=== PATIENT | male | born 1940 | race Caucasian/White ===

== ENCOUNTER 2024-03-15 21:17 | Observation (INO) | payer MEDICARE, OTHER, SELFPAY ==
--- NOTE | ~2024-03-15 | CT_ITS ---
EXAMINATION: CT brain wo con DATE: 03/15/2024 22:41 INDICATION: Altered mental status. TECHNIQUE: Computed tomography (CT) of the head was performed without intravenous contrast. The mA wa s adjusted according to patient size. Iterative reconstruction technique was employed. The dose-lengt h product was 681.00 mGy-cm. COMPARISON: None FINDINGS: There are scattered areas of low attenuation in the cerebral white matter. There is no intr acranial hemorrhage, acute infarction, or abnormal intracranial mass lesion. The ventricles are tiny l in size. There are likely changes of ocular lens replacement surgeries. There is mild mucosal thick ening in the paranasal sinuses. The mastoid air cells are normal. IMPRESSION: 1. Moderate nonspecific cerebral white matter disease, which likely represents chronic small vessel i schemic disease. Reviewed, dictated and finalized at location E. IMPRESSION: 1. Moderate nonspecific cerebral white matter disease, which likely represents chronic small vessel ischemic disease.
--- NOTE | ~2024-03-15 | CT_ITS ---
EXAMINATION: CTA brain carotid DATE: 03/16/2024 18:37 INDICATION: Transient ischemic attack. TECHNIQUE: Computed tomographic angiography (CTA) of the head was performed without and with 100 mL O mnipaque-350 intravenous contrast. CTA of the neck was performed with intravenous contrast. Automated exposure control and iterative reconstruction technique were employed. The dose-length product was 1 704.28 mGy-cm. Maximum intensity projection and volume rendered 3D-reconstructions were created by jose manuel e technologist on a separate workstation. COMPARISON: Head CT 03/15/2024, brain MRI 03/16/2024 FINDINGS: HEAD CTA: There are scattered areas of low attenuation in the cerebral white matter. There is no intr acranial hemorrhage, acute infarction, or abnormal intracranial mass lesion. The ventricles are tiny l in size. There is mild mucosal thickening in the paranasal sinuses. There are likely changes of ocu lar lens replacement surgeries. The mastoid air cells are normal. Left vertebral artery is dominant. There is no significant stenosis of basilar artery or the posterior cerebral arteries. There is no si gnificant stenosis of the intracranial internal carotid arteries or anterior or middle cerebral arter ies. Anterior communicating artery is normal. The posterior communicating arteries are normal. There is no aneurysm. NECK CTA: There is a 9 mm nodule in left thyroid lobe, likely not clinically significant. There are n o pathologically enlarged lymph nodes. There is no significant stenosis of the vertebral arteries. Th ere is plaque in the proximal internal carotid arteries. There is 21% stenosis of the proximal right internal carotid artery relative to normal distal artery lumen diameter (NASCET criteria). There is 4 % stenosis of the proximal left internal carotid artery relative to normal distal artery lumen diamet er. There is severe cervical spondylosis. IMPRESSION: 1. Moderate nonspecific cerebral white matter disease, which likely represents chronic small vessel i schemic disease. 2. No aneurysm or significant intracranial arterial stenosis. 3. 21% stenosis of the proximal right internal carotid artery relative to normal distal artery lumen diameter (NASCET criteria). 4. 4% stenosis of the proximal left internal carotid artery relative to normal distal artery lumen di ameter. Reviewed, dictated and finalized at location E. IMPRESSION: 1. Moderate nonspecific cerebral white matter disease, which likely represents chronic small vessel ischemic disease. 2. No aneurysm or significant intracranial arterial stenosis. 3. 21% stenosis of the proximal right internal carotid artery relative to tiny l distal artery lumen diameter (NASCET criteria). 4. 4% stenosis of the proximal left internal carotid artery relative to normal distal artery lumen diameter.
--- NOTE | ~2024-03-15 | MR_ITS ---
MRI of the brain Clinical History: Global amnesia Technique: Axial and sagittal T1-weighted images were acquired. These were followed by axial T2-weigh andrew, diffusion weighted, gradient, and FLAIR images. Following intravenous administration of 13 cc Mu ltiHance gadolinium, T1-weighted fat-sat imaging was performed in the axial and coronal planes. Findings: There is no acute infarct, intracranial hemorrhage or mass lesion. There is moderate chroni c microvascular ischemic change in the periventricular white matter bilaterally. Ventricles and subarachnoid spaces are minimally dilated. Orbits are unremarkable. Paranasal sinuses and mastoid air cells are clear. Major intracranial flow voids appear intact. Sagittal midline structures are intact. No abnormal postcontrast enhancement identified. IMPRESSION: No acute infarct, intracranial hemorrhage, or mass lesion. Moderate chronic microvascular ischemic changes. Reviewed, dictated and finalized at [facility].
--- NOTE | ~2024-03-15 | XR_ITS ---
EXAMINATION: XR chest 2V DATE: 03/15/2024 23:52 INDICATION: Transient ischemic attack. TECHNIQUE: Frontal and lateral views of the chest were obtained. COMPARISON: None. FINDINGS: There is no pneumonia, pleural effusion, or pneumothorax. The heart size is normal. There i s a moderate-sized hiatal hernia. IMPRESSION: 1. Moderate-sized hiatal hernia. Reviewed, dictated and finalized at location E.
--- NOTE | 2024-03-15 21:24 | ECG_ITS ---
Test Date: 2024-03-15 21:28:50 Measurements Intervals [place] Rate: 63 P: 24 [place]: 169 QRS: 36 QRSD: 96 T: 64 QT: 406 QTc: 418 Interpretive Statements SINUS RHYTHM INCOMPLETE RIGHT BUNDLE BRANCH BLOCK BORDERLINE ST ABNORMALITY- ANTEROLAT/INF LEADS BASELINE ARTIFACT- I, II, III, AVR, AVF BORDERLINE ECG No previous ECG available for comparison Electronically Signed On 03-16-2024 06:08:52 CDT by Vishal Rosa D.O.
[2024-03-15 21:29] VITALS: BP 134/71; PULSE 63; RESP 13; TEMP 36.8; O2SAT 96
[2024-03-15 21:45] LABS: Basophils Absolute Auto 0.1 K/mm3 (0.0-0.1); Basophils Percent Auto 1.2 % (0.2-1.2); Eosinophils Absolute Auto 0.2 K/mm3 (0-0.3); Eosinophils Percent Auto 2.6 % (0-4.4); Hematocrit 43.6 % (42.0-52.0); Hemoglobin 14.1 g/dL (14.0-18.0); Immature Granulocyte Absolute 0.02 K/mm3 (0.00-0.031); Immature Granulocyte Percent A 0.3 % (0-0.5); Lymphocytes Absolute Auto 1.83 K/mm3 (0.9-3.2); Lymphocytes Percent Auto 30.1 % (18.3-44.2); Mean Corpuscular HGB Conc 32.3 g/dl (32-36); Mean Corpuscular Hemoglobin 31.2 pg (26-34); Mean Corpuscular Volume 96.5 fl (80-100); Mean Platelet Volume 8.7 fl (7.4-10.4); Monocytes Absolute Auto 0.5 K/mm3 (0.1-0.6); Monocytes Percent Auto 7.9 % (2.6-8.5); Neutrophils Absolute Auto 3.5 K/mm3 (1.3-6.7); Neutrophils Percent Auto 57.9 % (45.5-73.1); Platelet Count Result 216 k/mm3 (150-375); Red Blood Count 4.52 M/mm3 (4.6-6.20); Red Cell Distribution Width 13.2 % (11.5-14.5); White Blood Count 6.1 K/mm3 (4.5-10.0)
[2024-03-15 21:55] LABS: Alanine Aminotransferase 10 U/L (6-50); Albumin Level 4.9 g/dL (3.5-5.1); Alkaline Phosphatase 87 U/L (38-126); Anion Gap 12 mmol/L (4-12); Aspartate Amino Transferase 27 U/L (17-59); Bilirubin,Total 0.8 mg/dL (0.2-1.3); Blood Urea Nitrogen 26 mg/dL (9-20); Calcium 9.6 mg/dL (8.4-10.2); Carbon Dioxide 23 mmol/L (22-30); Chloride 106 mmol/L (98-107); Estimated CRCL calculation 43 ml/min; Estimated Glomerular Filt Rate > 60; Glucose 108 mg/dL (65-110); Potassium 3.7 mmol/L (3.4-5.0); Sodium 141 mmol/L (137-145)
[2024-03-15 21:56] LABS: INR 1.1; Prothrombin Time 14.1 Seconds (11.1-14.7)
[2024-03-15 21:57] LABS: Partial Thromboplastin Time 30.1 Seconds (22.3-36.8)
[2024-03-15 22:36] LABS: Troponin I < 0.012 ng/mL (0.000-0.034)
--- NOTE | 2024-03-15 23:31 | ED.AMS ---
HPI - Altered Mental Status General Chief Complaint: Altered Mental Status Stated Complaint: disoriented intermittently Time Seen by Provider: 03/15/24 21:34 History of Present Illness HPI narrative: Patient is an 83-year-old male who presents ER with concerns for possible TIA. This morning woke up at 2:00 a.m. and he did not know where he was and what house he was in. He has lived and try for the last 4 months. This lasted for 15 minutes. Later in the afternoon he was making an attempt to drive back to [place] because he has reconcile with his . [place] [address] he felt like things were beginning to become Gy in his vision. He then became confused and did not know where he was or what he was doing. He pulled over to a rest stop. He is assessed by a [employer] medic who told him he could be having a TIA. Patient his son opted to come here for further evaluation. Patient has no complaints at this time. He denies any anxiety. Has no weakness or numbness to any arm or leg. No slurred speech. He is orient x4. Related Data Allergies Allergy/AdvReac Type Severity Reaction Status Date / Time No Known Allergies Allergy Verified 03/15/24 21:30 Review of Systems Review of Systems: All systems reviewed & are unremarkable except as noted in HPI and below Constitutional: Constitutional: Reports no additional constitutional complaints ENT: Reports system reviewed and no additional complaints, except as documented Cardiovascular: Cardiovascular: Reports no additional cardiovascular complaints Respiratory: Respiratory: Reports no additional respiratory complaints Gastrointestinal: Gastrointestinal: Reports no additional gastrointestinal complaints Neurologic: Reports confusion, Denies headache(s), Denies focal weakness and Denies numbness PMFSH Past Medical History Medical History (Updated 03/16/24 @ 01:54 by Brandon Tobin MD) History of bladder cancer Surgical History Surgical History (Updated 03/15/24 @ 23:33 by Brandon Tobin MD) H/O cystoscopy Exam Narrative: GENERAL: Well-appearing, well-nourished, and in no acute distress. HEAD: Normocephalic, atraumatic. ENT: Mucous membranes moist. CHEST: Clear to auscultation. No respiratory distress. HEART: Regular rate and rhythm. Normal peripheral pulses. ABDOMEN: Soft, nontender, nondistended. EXTREMITIES: Normal range of motion. No edema. SKIN: Warm, dry, no rash. NEURO: No focal deficits. Alert and oriented x3. no upper or lower extremity drift. Normal [id number]-[id number] testing [id number] testing. Clear speech without expressive aphasia. PSYCH: Normal mood and affect. Course Course Emergency Course: Patient resting comfortably. Informed of results. Admit for observation as patient had been similar TA and it was likely transient global amnesia. Will observe for arrhythmia and obtain MRI. Vital Signs Vital signs: Vital Signs Temperature 98.2 F 03/15/24 21:29 Pulse Rate 63 03/15/24 21:29 Respiratory Rate 13 03/15/24 21:29 Blood Pressure 134/71 03/15/24 21:29 Pulse Oximetry 96 03/15/24 21:29 Temperature 98.2 F 03/15/24 21:29 Pulse Rate 58 L 03/16/24 00:35 Respiratory Rate 16 03/16/24 00:35 Blood Pressure 116/70 03/16/24 00:35 Pulse Oximetry 97 03/16/24 00:35 Oxygen Delivery Room Air 03/15/24 22:33 MDM - Altered Mental Status Lab Data 03/15/24 21:35 03/15/24 21:35 Labs: Lab Results 03/15/24 03/15/24 Range/Units 21:35 23:27 WBC 6.1 (4.5-10.0) K/mm3 RBC 4.52 L (4.6-6.20) M/mm3 Hgb 14.1 (14.0-18.0) g/dL Hct 43.6 (42.0-52.0) % MCV 96.5 (80-100) fl MCH 31.2 (26-34) pg MCHC 32.3 (32-36) g/dl RDW 13.2 (11.5-14.5) % Plt Count 216 (150-375) k/mm3 MPV 8.7 (7.4-10.4) fl Immature Gran % (Auto) 0.3 (0-0.5) % Neut % (Auto) 57.9 (45.5-73.1) % Lymph % (Auto) 30.1 (18.3-44.2) % Mo
[2024-03-15 23:49] LABS: Appearance Urine Clear (Clear); Bilirubin Urine Negative (Negative); Blood Urine Negative (Negative); Color Urine Yellow (Yellow); Glucose Urine UA Negative (Negative); Ketones Urine Negative (Negative); Leukocyte Esterase Ur Negative LEU/UL (Negative); Nitrate Urine Negative (Negative); Protein Urine Negative (Negative); Specific Grav Ur 1.027 (1.001-1.035)
[2024-03-15 23:53] LABS: Add Urine Microscopic? NO
[2024-03-16] VITALS (10 sets, daily range): BP systolic 111–116; BP diastolic 54–70; PULSE 58–68; RESP 16–20; TEMP 36.3–36.8; O2SAT 92–99; BMI 22.4
--- NOTE | 2024-03-16 02:10 | ADMGEN ---
This patient, Noble Ruelas, was admitted to Medical Room 349-01. Patient/family oriented to hospital policies and general routines including ID bracelet, bed and alarms, visiting hours, pain management, procedures, bathroom and other care routines, personal items, smoking policy, room service/diet, and visiting hours. Information on how to activate the Rapid Response Team has been discussed. Patient/Family are encouraged to report perceived risks to care and to ask questions if they do not understand what they are told or what they should do.
--- NOTE | 2024-03-16 05:53 | ECHO_ITS ---
Patient Info Name: Noble Ruelas Age: 83 years : 1940 Gender: Male Ht: 67 in Wt: 145 lbs BSA: 1.77 m2 HR: 59 bpm BP: 114 / 54 mmHg Technical Quality: Fair Exam Date: 03/16/2024 8:13 AM Exam Location: Echo Lab Patient Status: Outpatient Admit Date: 03/16/2024 Staff Ordering Physician: Alan Ogden MD Strawhat Sizer: Kj Brooks RDCS Attending Provider: Alan Ogden MD Exam Type: CA echo doppler w bubble study Study Info Indications I50.20 - Unspecified systolic (congestive) heart failure - CVA Complete two-dimensional, color flow and Doppler transthoracic echocardiogram is performed with agitated saline. Contrast/Agitated Saline Contrast/Ag. Saline: Agitated Saline Amount: 14.00 ml IV Access Condition: patent with no signs of infiltration Summary 1. Left ventricular chamber dimension is normal. 2. Left ventricular systolic function is normal, estimated at 65-70%. 3. The left ventricular diastolic function is grade I diastolic dysfunction. 4. E/e' 8 is minimally elevated. 5. There is moderate aortic valve sclerosis. 6. There is trace aortic valve regurgitation. 7. There is trace mitral valve regurgitation. 8. There is mild tricuspid valve regurgitation. 9. No pulmonary hypertension, estimated pulmonary arterial systolic pressure is 38 mmHg. Left Ventricle E/e' 8 is minimally elevated. Left ventricular chamber dimension is normal. Left ventricular systolic function is normal, estimated at 65-70%. The left ventricular diastolic function is grade I diastolic dysfunction. Right Ventricle Right ventricular systolic function is normal and with normal TAPSE 2.2 cm. Right ventricular chamber dimension is normal. Left Atria Left atrial chamber dimension is normal. Right Atria Right atrial chamber dimension is normal. Atrial Septum Agitated saline injection with and without valsalva maneuver opacified right side cardiac chambers without shunt to left side cardiac chambers. Intact interatrial septum visualized by 2D and agitated saline imaging. Aortic Valve The aortic valve is trileaflet. There is moderate aortic valve sclerosis. There is no aortic valve stenosis. There is trace aortic valve regurgitation. Pulmonic Valve There is no pulmonic regurgitation. Mitral Valve There is no mitral valve stenosis. There is trace mitral valve regurgitation. Tricuspid Valve There is mild tricuspid valve regurgitation. No pulmonary hypertension, estimated pulmonary arterial systolic pressure is 38 mmHg. Pericardium/Pleural There is no pericardial effusion. Inferior Vena Cava Normal inferior vena cava with >50% collapse upon inspiration consistent with normal right atrial pressure, 5 mmHg. Aorta The aortic root size at the sinus of Valsalva is normal. Left Ventricular Outflow Tract Name Value Normal LVOT 2D LVOT Diameter 2.1 cm LVOT Doppler LVOT Peak Gradient 5 mmHg LVOT Mean Gradient 2 mmHg LVOT VTI 22 cm LVOT VTI/AV VTI Ratio 0.6 LVOT Stroke Volume 76 ml LVOT CO
--- NOTE | 2024-03-16 05:55 | PM.IMHP ---
H&P: HPI History of Present Illness Date/Time: 03/16/24 05:55 Chief Complaint: Weakness Narrative: Patient is a 83-year-old male who presented emergency room with history of possible TIA. Patient states he woke up about 2:00 a.m. when he was at home this symptom lasted about 15 minutes. Patient was driving to [place] but after getting on the interstate he started seeing that the patient was getting blurry year he was getting more confused and disoriented slurred speech Review of Systems Review of Systems: All systems reviewed & are unremarkable except as noted in HPI and below PMFSH Past Medical History Medical History (Updated 03/16/24 @ 01:54 by Brandon Tobin MD) History of bladder cancer Surgical History Surgical History (Updated 03/15/24 @ 23:33 by Brandon Tobin MD) H/O cystoscopy Social History Social History Years smoked: 20 Smoking status: Former smoker Alcohol intake: never Substance use: never Do You Feel Safe in your Home?: Yes Lack of Transportation: No Lack of Food: Never True Current Housing: I Have Housing Concerned About Future Housing: No Difficulty Paying Gas/Electric Bills: No Difficulty Paying for Meds: No Currently Unemployed: No Education: High School Diploma/GED Difficulty w/ Childcare or Family Care: No Spiritual care concerns: No Meds Home Medications and Allergies Home Medications Medication Instructions Recorded Confirmed Type oxybutynin chloride 15 mg 15 mg PO DAILY PRN urgency 03/16/24 03/16/24 History tablet,extended release 24 hr valacyclovir 500 mg tablet 500 mg PO DAILY 03/16/24 03/16/24 History (Valtrex) Allergies Allergy/AdvReac Type Severity Reaction Status Date / Time No Known Allergies Allergy Verified 03/16/24 02:50 Vital Signs Vital Signs - 24 hr 03/15/24 21:29 03/15/24 22:33 03/16/24 00:35 Temperature 36.8 C Pulse Rate 63 58 L Respiratory Rate 13 16 Blood Pressure 134/71 116/70 Pulse Oximetry 96 97 Oxygen Delivery Room Air 03/16/24 02:45 03/16/24 04:09 Temperature Pulse Rate 62 62 Respiratory Rate Blood Pressure Pulse Oximetry Oxygen Delivery Exam Narrative: GENERAL: Well appearing, no acute distress. HEAD: Normocephalic, atraumatic. NECK: Supple. No adenopathy, no masses. RESPIRATORY: respirations nonlabored. , no rales, wheezing. CARDIOVASCULAR: Regular rate and rhythm without murmurs, . Peripheral pulses 2+ and equal bilaterally. ABDOMINAL: Soft, nontender, nondistended, no hepatosplenomegaly. Normoactive BS. MUSCULOSKELETAL: no Epigastric and no hypochondrial tenderness SKIN: Warm, dry, NEURO: A&O X3. Moves all extremities H&P: Results Labs Labs: Short CBC 03/15/24 Range/Units 21:35 WBC 6.1 (4.5-10.0) K/mm3 Hgb 14.1 (14.0-18.0) g/dL Hct 43.6 (42.0-52.0) % Plt Count 216 (150-375) k/mm3 BMP 03/15/24 21:35 Sodium 141 Potassium 3.7 Chloride 106 Carbon Dioxide 23 BUN 26 H Creatinine 1.10 Glucose 108 Calcium 9.6 Cardiac Enzymes 03/15/24 Range/Units 21:35 Troponin I < 0.012 (0.000-0.034) ng/mL Liver Function 03/15/24 Range/Units 21:35 Total Bilirubin 0.8 (0.2-1.3) mg/dL AST 27 (17-59) U/L ALT 10 (6-50) U/L Alkaline Phosphatase 87 (38-126) U/L Albumin 4.9 (3.5-5.1) g/dL Urine 03/15/24 Range/Units 23:27 Urine Color Yellow (Yellow) Urine Appearance Clear (Clear) Urine pH 5.0 (5.0-9.0) Ur Specific [place] 1.027 (1.001-1.035) Urine Protein Negative (Negative) mg/dL Urine Glucose (UA) Negative (Negative) mg/dL ECG Interpretation: Moderate nonspecific cerebral white matter disease, which likely represents chronic small vessel ischemic disease. IMPRESSION: 1. Moderate-sized hiatal hernia. Assessment and Plan Assessment and plan (1) TGA (transient global amnesia): Code(s): G45.4 - Transient global a
[2024-03-16 06:08] LABS: Hematocrit 42.1 % (42.0-52.0); Hemoglobin 13.5 g/dL (14.0-18.0); Mean Corpuscular HGB Conc 32.1 g/dl (32-36); Mean Corpuscular Hemoglobin 31.3 pg (26-34); Mean Corpuscular Volume 97.7 fl (80-100); Mean Platelet Volume 8.7 fl (7.4-10.4); Platelet Count Result 186 k/mm3 (150-375); Red Blood Count 4.31 M/mm3 (4.6-6.20); Red Cell Distribution Width 13.2 % (11.5-14.5); White Blood Count 5.5 K/mm3 (4.5-10.0)
[2024-03-16 06:20] LABS: Alanine Aminotransferase 9 U/L (6-50); Albumin Level 4.2 g/dL (3.5-5.1); Alkaline Phosphatase 73 U/L (38-126); Anion Gap 11 mmol/L (4-12); Aspartate Amino Transferase 21 U/L (17-59); Bilirubin,Total 0.8 mg/dL (0.2-1.3); Blood Urea Nitrogen 23 mg/dL (9-20); Calcium 9.6 mg/dL (8.4-10.2); Carbon Dioxide 24 mmol/L (22-30); Chloride 106 mmol/L (98-107); Estimated CRCL calculation 50 ml/min; Estimated Glomerular Filt Rate > 60; Glucose 97 mg/dL (65-110); Potassium 3.6 mmol/L (3.4-5.0); Sodium 141 mmol/L (137-145)
[2024-03-16 06:21] LABS: Cholesterol 166 mg/dL (0-200); HDL Direct 62 mg/dL; Triglycerides 104 mg/dL (<150)
[2024-03-16 06:31] LABS: LDL Cholesterol Direct 81 mg/dL
[2024-03-16 06:34] LABS: Hemoglobin A1C 5.8 % (<5.7)
[2024-03-16] MEDS: valACYclovir HCL 500 MG TABLET PO (09:55)
[2024-03-16] MEDS: PANTOPRAZOLE 40 MG TABLET PO (09:55)
[2024-03-16] MEDS: ENOXAPARIN 40 MG/0.4 ML SYRINGE SUB-Q (09:56)
--- NOTE | 2024-03-16 10:08 | PM.IMPN ---
Progress Note: A&P Assessment and Plan (1) TGA (transient global amnesia): Code(s): G45.4 - Transient global amnesia Status: Acute Plan (1) TGA (transient global amnesia): Code(s): G45.4 - Transient global amnesia Status: Acute CVA/TIA Stroke evaluation/treatment: -Vitals and monitoring: - neurochecks - q4 hours x 24 hours - Continuous cardiac monitoring and telemetr pending MRI brain without contrast, Cancel echocardiogram with color-flow, order echocardiogram with bubble study Consult neurologist for evaluation PT/OT Eval and Treatment Labs: Check LDL and HgbA1C History of urine incontinence continue oxybutynin DVT prophylaxis. Lovenox GI prophylaxis. Protonix Subjective Date/time seen: 03/16/24 10:08 Interval history: I saw examined the patient today in presents of patient's son. Patient was alert oriented when talking to the patient. Patient denies headache, focal weakness, abnormal sensation. Patient afebrile, blood pressure stable Exam Narrative: GENERAL: Pleasant, in no acute distress. Well-nourished. - EYES: EOMI. Anicteric. - HENT: Moist mucous membranes. - LUNGS: Clear to auscultation bilaterally, no wheezing, rhonchi, or rales. - CARDIOVASCULAR: Regular rate and rhythm. No murmur. No JVD. - ABDOMEN: Soft, non-tender and non-distended. No palpable masses. - EXTREMITIES: No edema. Peripheral pulses 2+. Non-tender. - NEUROLOGIC: No focal neurological deficits. CN II-XII grossly intact. - PSYCHIATRIC: Awake, Alert and oriented x 3. Appropriate mood and affect. - SKIN: No rashes or lesions. Warm. - LYMPH: No cervical lymphadenopathy. Objective Data Vital Signs Vital Signs: Vital Signs - 24 hr 03/15/24 21:29 03/15/24 22:33 03/16/24 00:35 Temperature 98.2 F Pulse Rate 63 58 L Respiratory Rate 13 16 Blood Pressure 134/71 116/70 Pulse Oximetry 96 97 Oxygen Delivery Room Air 03/16/24 02:45 03/16/24 04:09 03/16/24 06:00 Temperature 98.1 F Pulse Rate 62 62 59 L Respiratory Rate 20 Blood Pressure 114/54 L Pulse Oximetry 99 Oxygen Delivery 03/16/24 08:00 Temperature Pulse Rate Respiratory Rate Blood Pressure Pulse Oximetry 96 Oxygen Delivery Room Air Intake/Output Intake/Output: Intake & Output 03/13/24 03/14/24 03/15/24 03/16/24 23:59 23:59 23:59 23:59 Intake Total 360 Balance 360 Meds/Results Medications: Active Medications Generic Name Dose Route Start Last Admin Trade Name Shantanuq PRN Reason Stop Dose Admin Acetaminophen 650 mg 03/16/24 00:44 Acetaminophen 325 Mg Tablet PO Q4H PRN Mild Pain (1-3) or Fever Hydrocodone Bitart/Acetaminophen 1 tab 03/16/24 00:44 Hydrocodone/Acetaminophen (*Crx) 5-325 Mg Tablet PO Q4H PRN Pain Rated 4-6 Enoxaparin Sodium 40 mg 03/16/24 09:00 03/16/24 09:56 Enoxaparin 40 Mg/0.4 Ml Syringe SUB-Q 40 mg DAILY RAJESH Administration Ondansetron HCl 4 mg 03/16/24 00:44 Ondansetron Inj 4 Mg/2 Ml Vial IV PUSH Q4H PRN Nausea Oxybutynin Chloride 15 mg 03/16/24 05:55 Oxybutynin Chloride Xl 5 Mg Tab.Er.24 PO DAILY PRN urgency Pantoprazole Sodium 40 mg 03/16/24 09:00 03/16/24 09:55 Pantoprazole 40 Mg Tablet PO 40 mg QAM RAJESH Administration Perflutren Lipid Microsphere 0 ml 03/16/24 05:53 Perflutren Lipid Microspheres 1.5 Ml Vial Diluted To 10 Ml Total Volume IV PUSH 03/19/24 05:53 ONCE PRN adequate visualization Protocol Valacyclovir HCl 500 mg 03/16/24 09:00 03/16/24 09:55 Valacyclovir Hcl 500 Mg Tablet PO 500 mg DAILY RAJESH Administration Radiology Results: ITS Impressions Head CT 03/15/24 22:42 IMPRESSION: 1. Moderate nonspecific cerebral white matter disease, which likely represents chronic small vessel ischemic disease. Chest X-Ray 03/15/24 23:53 IMPRESSION: 1. Moderate-sized hiatal hernia. Labs Labs: Laboratory Results - l
--- NOTE | 2024-03-16 10:47 | WPDNEURCNPN ---
Assessment and Plan Assessment and plan (1) Episode of confusion: Code(s): R41.0 - Disorientation, unspecified Status: Acute Plan Noble Ruelas is a 83 year old male with a history of bladder cancer presenting due to two episodes of confusion. Concern for possible TIA vs TGA vs focal seizure. MRI brain is negative for acute stroke. - Obtain CTA brain/carotid - Obtain routine EEG - Start Aspirin 81mg daily - Start statin. Goal LDL is <70 - Obtain echo with bubble study - I discussed with patient that he cannot drive until he is episode free for at least six months Consult date: 03/16/24 HPI: Noble Ruelas is a 83 year old male with a history of bladder cancer presenting due to an episode of confusion. Patient woke up at 2AM on 03/15 and did not know where he was and what house he was in. He has lived in the house fo the past four months. The episode lasted for about 15 minutes. Later in the afternoon he was driving, and during the drive became confused -- he did not know what he was doing or where he was going. He pulled over at a rest stop. He was assessed by a former medic who told him that he could be having a TIA. Patient was then brought to [facility] ED after that. In the ER he was AOx4. His CT head did not show any acute changes. No vessel imaging was done. MRI brain was negative for stroke. His LDL is 81. He does not take any blood thinners or statins. Review of Systems Review of Systems: All systems reviewed & are unremarkable except as noted in HPI and below PMFSH Past Medical History Medical History History of bladder cancer Surgical History Surgical History H/O cystoscopy Social History Social History Years smoked: 20 Smoking status: Former smoker Alcohol intake: never Substance use: never Do You Feel Safe in your Home?: Yes Lack of Transportation: No Lack of Food: Never True Current Housing: I Have Housing Concerned About Future Housing: No Difficulty Paying Gas/Electric Bills: No Difficulty Paying for Meds: No Currently Unemployed: No Education: High School Diploma/GED Difficulty w/ Childcare or Family Care: No Spiritual care concerns: No Meds Home Medications and Allergies Home Medications Medication Instructions Recorded Confirmed Type oxybutynin chloride 15 mg 15 mg PO DAILY PRN urgency 03/16/24 03/16/24 History tablet,extended release 24 hr valacyclovir 500 mg tablet 500 mg PO DAILY 03/16/24 03/16/24 History (Valtrex) Allergies Allergy/AdvReac Type Severity Reaction Status Date / Time No Known Allergies Allergy Verified 03/16/24 02:50 Vital Signs Vital Signs - 24 hr 03/15/24 21:29 03/15/24 22:33 03/16/24 00:35 Temperature 36.8 C Pulse Rate 63 58 L Respiratory Rate 13 16 Blood Pressure 134/71 116/70 Pulse Oximetry 96 97 Oxygen Delivery Room Air 03/16/24 02:45 03/16/24 04:09 03/16/24 06:00 Temperature 36.7 C Pulse Rate 62 62 59 L Respiratory Rate 20 Blood Pressure 114/54 L Pulse Oximetry 99 Oxygen Delivery 03/16/24 08:00 Temperature Pulse Rate Respiratory Rate Blood Pressure Pulse Oximetry 96 Oxygen Delivery Room Air Exam Const: General: comfortable and no acute distress HENMT: Mouth: Yes moist mucous membranes Eyes: Pupils: Equal, round and reactive pupils present EOM: EOMs intact bilaterally Resp: Effort & Inspection: normal respiratory effort Skin: General skin exam: normal color Neuro: Other: Pupils equal and reactive bilaterally, EOMI, face symmetric, facial sensation intact, tongue protrudes midline, palate midline. Shoulder shrug normal. Strength 5/5 throughout. Sensation is symmetric bilaterally. FNF normal bilaterally. Language comprehension and fluency intact. Gait deferred. Extrem: General: nor
[2024-03-17] VITALS: PULSE 62
[2024-03-17 04:00] VITALS: PULSE 69
[2024-03-17 06:00] VITALS: BP 120/78; PULSE 69; RESP 20; TEMP 37; O2SAT 99
[2024-03-17 06:05] LABS: Hematocrit 42.6 % (42.0-52.0); Hemoglobin 13.7 g/dL (14.0-18.0); Mean Corpuscular HGB Conc 32.2 g/dl (32-36); Mean Corpuscular Hemoglobin 31.5 pg (26-34); Mean Corpuscular Volume 97.9 fl (80-100); Mean Platelet Volume 8.8 fl (7.4-10.4); Platelet Count Result 212 k/mm3 (150-375); Red Blood Count 4.35 M/mm3 (4.6-6.20); Red Cell Distribution Width 13.3 % (11.5-14.5)
[2024-03-17 06:18] LABS: Alanine Aminotransferase 9 U/L (6-50); Albumin Level 4.4 g/dL (3.5-5.1); Alkaline Phosphatase 71 U/L (38-126); Anion Gap 9 mmol/L (4-12); Aspartate Amino Transferase 26 U/L (17-59); Bilirubin,Total 0.9 mg/dL (0.2-1.3); Blood Urea Nitrogen 20 mg/dL (9-20); Calcium 9.9 mg/dL (8.4-10.2); Carbon Dioxide 25 mmol/L (22-30); Chloride 105 mmol/L (98-107); Estimated CRCL calculation 56 ml/min; Estimated Glomerular Filt Rate > 60; Glucose 104 mg/dL (65-110); Potassium 3.9 mmol/L (3.4-5.0); Sodium 139 mmol/L (137-145)
[2024-03-17 08:00] VITALS: PULSE 65
[2024-03-17] MEDS: ATORVASTATIN 10 MG TABLET PO (08:52)
[2024-03-17] MEDS: PANTOPRAZOLE 40 MG TABLET PO (08:52)
[2024-03-17] MEDS: ASPIRIN 81 MG CHEWABLE TABLET PO (08:52)
[2024-03-17] MEDS: ENOXAPARIN 40 MG/0.4 ML SYRINGE SUB-Q (08:52)
[2024-03-17] MEDS: valACYclovir HCL 500 MG TABLET PO (08:52)
--- NOTE | 2024-03-17 09:06 | WPDNEUROPN ---
Progress Note: A&P Assessment and Plan (1) Episode of confusion: Code(s): R41.0 - Disorientation, unspecified Status: Acute Plan Noble Ruelas is a 83 year old male with a history of bladder cancer presenting due to two episodes of confusion. Concern for possible TIA vs TGA vs focal seizure. MRI brain is negative for acute stroke. Routine EEG is normal. - Start Aspirin 81mg daily - Start statin. Goal LDL is <70 - Echo is negative for shunt. Would also like 30 day event monitor placed prior to discharge. - I discussed with patient that he cannot drive until he is episode free for at least six months Subjective Date/time seen: 03/17/24 09:06 Interval history: Noble Ruelas is a 83 year old male with a history of bladder cancer presenting due to an episode of confusion. Patient woke up at 2AM on 03/15 and did not know where he was and what house he was in. He has lived in the house fo the past four months. The episode lasted for about 15 minutes. Later in the afternoon he was driving, and during the drive became confused -- he did not know what he was doing or where he was going. He pulled over at a rest stop. He was assessed by a former medic who told him that he could be having a TIA. Patient was then brought to [place] ED after that. In the ER he was AOx4. His CT head did not show any acute changes. CTA brain/carotid showed 21% stenosis in the proximal R ICA and 4% stenosis in the proximal L ICA. MRI brain was negative for stroke. His LDL is 81. He does not take any blood thinners or statins. Echo was done which was negative for shunt on bubble study. Routine EEG from this morning was normal. Review of Systems Review of Systems: All systems reviewed & are unremarkable except as noted in HPI and below Exam Const: General: comfortable and no acute distress HENMT: Mouth: Yes moist mucous membranes Eyes: Pupils: Equal, round and reactive pupils present EOM: EOMs intact bilaterally Resp: Effort & Inspection: normal respiratory effort Skin: General skin exam: normal color Neuro: Other: Pupils equal and reactive bilaterally, EOMI, face symmetric, facial sensation intact, tongue protrudes midline, palate midline. Shoulder shrug normal. Strength 5/5 throughout. Sensation is symmetric bilaterally. FNF normal bilaterally. Language comprehension and fluency intact. Gait deferred. Extrem: General: normal to inspection Psych: Mental Status: mental status grossly normal Affect: normal affect Objective Data Vital Signs Vital Signs: Vital Signs - 24 hr 03/16/24 14:00 03/16/24 16:00 03/16/24 20:04 Temperature 36.3 C L 36.8 C Pulse Rate 67 58 L 61 Respiratory Rate 16 16 Blood Pressure 111/68 116/65 Pulse Oximetry 97 92 Oxygen Delivery 03/16/24 20:00 03/16/24 20:00 03/16/24 21:48 Temperature Pulse Rate 68 Respiratory Rate Blood Pressure Pulse Oximetry 93 Oxygen Delivery Room Air Room Air 03/17/24 00:00 03/17/24 04:00 03/17/24 06:00 Temperature 37.0 C Pulse Rate 62 69 69 Respiratory Rate 20 Blood Pressure 120/78 Pulse Oximetry 99 Oxygen Delivery Intake/Output Intake/Output: Intake & Output 03/14/24 03/15/24 03/16/24 03/17/24 23:59 23:59 23:59 23:59 Intake Total 1190 240 Balance 1190 240 Meds/Results Medications: Active Medications Generic Name Dose Route Start Last Admin Trade Name Freq PRN Reason Stop Dose Admin Acetaminophen 650 mg 03/16/24 00:44 Acetaminophen 325 Mg Tablet PO Q4H PRN Mild Pain (1-3) or Fever Hydrocodone Bitart/Acetaminophen 1 tab 03/16/24 00:44 Hydrocodone/Acetaminophen (*Crx) 5-325 Mg Tablet PO Q4H PRN Pain Rated 4-6 Aspirin 81 mg 03/17/24 08:00 03/17/24 08:52 Aspirin 81 Mg Chewable Tablet PO 81 mg DAILY@0800 [facility] Administration Atorvastatin Calcium 10 mg 03/17/24 09:00 03/17/24 08:52 Atorvastatin 10 Mg Tablet PO 10 mg DAILY [facility] Administrat
--- NOTE | 2024-03-17 10:43 | WPDNEUROLOGY ---
Neurology EEG Report General Information Date of Study: 03/17/24 TEST Routine EEG DIAGNOSIS Episodes of confusion CONDITION OF RECORDING Awake, drowsy, asleep EEG NUMBER [id number] CLINICAL HISTORY Patient had two episodes of confusion. With the first episode he woke up in the government relations [place] and did not know where he was. With the second episode he was driving and then suddenly did not know where he was going and why he was driving. EEG DESCRIPTION During the awake state with eyes closed the background consists of 9 Hz posterior dominant rhythm which attenuates appropriately with eye opening. The recording is continuous. There is a well developed anterior-posterior gradient. No significant asymmetries of background activities are noted. With drowsiness there is waxing and waning of the dominant rhythm with eventual replacement by a mixture of beta, alpha, and theta activity. As the patient enters stage II sleep, symmetrical spindles are present. There are no epileptiform discharges or seizures during this recording. Hyperventilation and photic stimulation were not performed. IMPRESSION This is a normal routine EEG recorded in awake and asleep states. There are no electrographic seizures identified, nor are there any epileptiform discharges. Please note that a normal EEG cannot exclude a seizure disorder. Clinical correlation is recommended.
--- NOTE | 2024-03-17 10:47 | PM.DS ---
DS: Admitting Diagnosis Discharge Date 03/17/24 Admitting Diagnosis Confusion DS: Discharge Diagnosis Discharge Diagnosis (1) TGA (transient global amnesia): Code(s): G45.4 - Transient global amnesia Status: Acute DS: Summary Hospital Course Hospital Course: 83-year-old male with history of bladder cancer presented with confusion episodes along with slurred speech and blurry vision. Each episode lasts about 15 minutes.. Evaluated for TIA versus stroke. And CT showed moderate nonspecific cerebral white matter disease which likely represent chronic small vessel ischemic disease. EKG was sinus rhythm. Chest x-ray with moderate-sized hiatal hernia. Patient was admitted for further treatment with neurology consultation. Echocardiogram showed EF 65-70% grade 1 diastolic dysfunction moderate aortic sclerosis. Neurology recommends 30 day event monitor placed prior to discharge. Started on aspirin 81 and statin for goal LDL of less than 70. No driving until episode free for at least 6 months. MRI brain was negative for acute stroke. Eeg was performed during the hospital stay. CTA head and neck with 21% proximal ADRIÁN and 4% LICA. He will follow-up with neurology as an outpatient basis. A1c at 5.8 labs were unremarkable urine was negative for infection. Will set him up with event monitor prior to discharge Time Spent with Patient Time attestation: Total time spent providing and/or coordinating discharge services: 35 minutes Exam Narrative: GENERAL: Pleasant, in no acute distress. Well-nourished. - EYES: EOMI. Anicteric. - HENT: Moist mucous membranes. - LUNGS: Clear to auscultation bilaterally, no wheezing, rhonchi, or rales. - CARDIOVASCULAR: Regular rate and rhythm. No murmur. No JVD. - ABDOMEN: Soft, non-tender and non-distended. No palpable masses. - EXTREMITIES: No edema. Peripheral pulses 2+. Non-tender. - NEUROLOGIC: No focal neurological deficits. CN II-XII grossly intact. - PSYCHIATRIC: Awake, Alert and oriented x 3. Appropriate mood and affect. - SKIN: No rashes or lesions. Warm. - LYMPH: No cervical lymphadenopathy. DS: Data Data Completed and Pending Labs on day of discharge: Labs from last 24 hours 03/17/24 05:56 WBC 6.0 RBC 4.35 L Hgb 13.7 L Hct 42.6 MCV 97.9 MCH 31.5 MCHC 32.2 RDW 13.3 Plt Count 212 MPV 8.8 Sodium 139 Potassium 3.9 Chloride 105 Carbon Dioxide 25 Anion Gap 9 BUN 20 Creatinine 0.80 Estim Creat Clear Calc 56 Estimated GFR > 60 Glucose 104 Calcium 9.9 Total Bilirubin 0.9 AST 26 ALT 9 Alkaline Phosphatase 71 Total Protein 7.0 Albumin 4.4 Imaging Radiologist's impression: ITS Impressions Head CT 03/15/24 22:42 IMPRESSION: 1. Moderate nonspecific cerebral white matter disease, which likely represents chronic small vessel ischemic disease. Chest X-Ray 03/15/24 23:53 IMPRESSION: 1. Moderate-sized hiatal hernia. Brain MRI 03/16/24 12:27 IMPRESSION: No acute infarct, intracranial hemorrhage, or mass lesion. Moderate chronic microvascular ischemic changes. Head/Neck CTA 03/16/24 18:58 IMPRESSION: 1. Moderate nonspecific cerebral white matter disease, which likely represents chronic small vessel ischemic disease. 2. No aneurysm or significant intracranial arterial stenosis. 3. 21% stenosis of the proximal right internal carotid artery relative to normal distal artery lumen diameter (NASCET criteria). 4. 4% stenosis of the proximal left internal carotid artery relative to normal distal artery lumen diameter. Discharge Plan Discharge Attending physician on discharge: Paul Bagley Consulting providers: Noble Franco; Lisa Pack Christy A. Discharging Clinician: Paul Bagley Anticipated Discharge Date/Time: 03/17/24 10:51 Patient Disposition: Home, Self-Care Activity: no driving and as tolerated Diet: heart healthy Patient Instructions: Antibiot
== END 2024-03-17 12:15 | disposition home or self-care (01) ==
LOC: ANHED 21:49 → ANH3MED 03-16 01:54
PROVIDERS: Admitting Provider Internal Medicine; Emergency Provider Emergency Medicine; Visit Provider Internal Medicine
DX: G45.4 Transient global amnesia (principal); Z85.51 Personal history of malignant neoplasm of bladder; Z87.891 Personal history of nicotine dependence; R32 Unspecified urinary incontinence; K44.9 Diaphragmatic hernia without obstruction or gangrene; I08.2 Rheumatic disorders of both aortic and tricuspid valves
CPT/HCPCS: 36415; 70450; 70496; 70498; 70553; 71046; 80053; 80061; 81003; 83036; 84484; 85025; 85027; 85610; 85730; 93005; 93306; 95816; 96375; 99285; A9270; A9577; G0378; J1650; Q9967

== ENCOUNTER 2025-02-11 15:15 | Emergency (ER) | payer MEDICARE, OTHER, SELFPAY ==
[2025-02-11 15:16] VITALS: BP 120/80; PULSE 68; RESP 18; TEMP 36.6; O2SAT 97
--- OUTSIDE RECORDS SUMMARY | 2025-02-11 16:04 | XMS_ITS | Continuity of Care Document ---
Author Organization [facility] Address [address] [place] [address] Phone Care Team Providers Care Supervisor Dog License Officer Name Role Phone No Information Unavailable Unavailable Advance Directives Directive Yes / No Effective Date File Name No Information Encounters Encounter Description Practice Location Reason(s) For Visit Diagnoses Date Provider Providers Copied on Encounter [facility], [address], [place], [id number], [place] tel:[phone] No Location No Information 8 No Information Family History Family Member Type Diagnosis Age At Onset No Information Payers Payer name Insurance type Covered green party ID Authoriza tion(s) No Information Social History Type Description Quantity Date Captured Comments Sex Male Smoking Status No Information Chief Complaint And Reason For Visit No Information Reason For Referral Reason For Referral No Information History Of Present Illness Encounter Date Complaint History Of Prese nt Illness No Information Functional Status Date Functional Assessmen t No Information Instructions Date Instruction Additional Infor mation No Information Assessments Type Assessment Date No Information Patient Care Teams Name Effective Dates (start - stop) Status Members No Information
--- NOTE | 2025-02-11 16:21 | ED.PSYCH ---
HPI - Psych General Chief Complaint: Psychiatric Symptoms Stated Complaint: si Time Seen by Provider: 02/11/25 15:52 History of Present Illness HPI Narrative: 84-year-old male with history of Alzheimer's dementia, depression and anxiety presents to the ED with son at bedside via EMS from [facility] for SI. Patient's son/ALEK lemus is at bedside to assist with history. The patient states that a few days ago the patient son received a letter in the mail from a [employer] from [place] stating that the patient had unpaid bills. The patient states that he spoke with the [employer] who confirmed the letter was not from them and that the patient was up-to-date on his bills. Patient states that he believes that his son does not believe him. They were discussing this on the phone today and got into an argument and the patient reportedly said ?I can just take care of this myself? and states he was alluding to killing himself, however he didn't mean it. Patient's son states it concerned him, so he contacted the litigation legal secretary at the assisted living facility who contacted EMS the patient was transported to the ED. on arrival the patient denies SI or HI, he denies any point for SI or HI. He denies access to weapons or firearms. States he drinks a couple beers a week. Denies drug use. Denies prior history of psychiatric hospitalizations. The patient recently moved locally to be closer to family and wishes that he could move back to [place] because he liked his life there, or go live on a campground. Patient is forgetful, however son states this is his baseline. Related Data Home Medications ?Medication ?Instructions ?Recorded ?Confirmed ?Last Taken ?Type valacyclovir 500 mg tablet 500 mg PO DAILY 03/16/24 07/25/24 03/15/24 09:00 History (Valtrex) Allergies Allergy/AdvReac Type Severity Reaction Status Date / Time No Known Allergies Allergy Verified 01/02/25 15:26 Review of Systems Review of Systems: All systems reviewed & are unremarkable except as noted in HPI and below PMFSH Past Medical History Medical History Dementia of the Alzheimer's type Partial seizure with complex symptomatology History of bladder cancer Surgical History Surgical History H/O cystoscopy Social History Social History Years smoked: 20 Smoking status: Former smoker Alcohol intake: never Substance use: never Substance use type: does not use Do You Feel Safe in your Home?: Yes Lack of Transportation: No Lack of Food: Never True Current Housing: I Have Housing Concerned About Future Housing: No Difficulty Paying Gas/Electric Bills: No Difficulty Paying for Meds: No Currently Unemployed: No Education: High School Diploma/GED Difficulty w/ Childcare or Family Care: No Spiritual care concerns: No Exam Narrative: GENERAL: Well-appearing, well-nourished, and in no acute distress. HEAD: Normocephalic, atraumatic. EYES: EOMI. ENT: Nares clear, no rhinorrhea or epistaxis. Mucous membranes moist. NECK: Supple. CHEST: Clear to auscultation. No respiratory distress. HEART: Regular rate and rhythm. No murmur heard. Normal peripheral pulses. EXTREMITIES: Normal range of motion. No edema. SKIN: Warm, dry, no rash. NEURO: No focal deficits. Alert and oriented x4. PSYCH: Answering all questions appropriately. Forgetful has to be redirected/reminded of questions. Denies SI or HI. Responding to internal stimuli. Pleasant and cooperative. Course Vital Signs Vital signs: Vital Signs Temperature 97.9 F 02/11/25 15:16 Pulse Rate 68 02/11/25 15:16 Respiratory Rate 18 02/11/25 15:16 Blood Pressure 120/80 02/11/25 15:16 Pulse Oximetry 97 02/11/25 15:16 Oxygen Delivery Room Air 02/11/25 15:16 Temperature 97.9 F 02/11/25 15:16 Pulse Rate 68 02/11/25 15:16 Respiratory Rate 18 02/11/25 15:16 Blood Pressure 120/80 02/11/25 15:16 Pulse Oximetry 97 02/11/25 15:16 Oxygen Delivery Room Air 02/11/25 15:16 MDM - Psych MDM Narrative Medical decision making narrative: 84-year-old male with history of dementia, depression and anxiety presents to the ED via EMS from assisted living facility for suicidal ideation. Patient was in an argument with his son and admits to making a comment stating I will just take care of it myself, eluting to killing himself. See HPI for further history. Triage vitals are stable. On arrival to the ED the patient denies any SI or HI, he denies any plan. He states he does not desire to ever harm himself. Lab work with chronic anemia, otherwise reassuring with no UTI, normal TSH, normal chemistries. Viral swabs negative. UDS and ETOH negative. Patient medically cleared for crisis evaluation. Patient evaluated by crisis. Safety plan has been filled out. Patient continues to deny any thoughts of harming himself or any plan to. He states he simply was making a common out of frustration in an argument with his son. Patient will be discharged back to assisted living facility and advised to follow-up with his PCP and neurologist. He was given return precautions. He and his son are agreeable with the plan verbalized understanding. Discharged in stable condition. Lab Data 02/11/25 17:27 02/11/25 16:46 Labs: Lab Results 02/11/25 02/11/25 Range/Units 16:46 17:27 WBC 5.5 (4.5-10.0) K/mm3 RBC 4.52 L (4.6-6.20) M/mm3 Hgb 13.6 L (14.0-18.0) g/dL Hct 43.6 (42.0-52.0) % MCV 96.5 (80-100) fl MCH 30.1 (26-34) pg MCHC 31.2 L (32-36) g/dl RDW 12.7 (11.5-14.5) % Plt Count 224 (150-375) k/mm3 MPV 8.5 (7.4-10.4) fl Immature Gran % (Auto) 0.2 (0-0.5) % Neut % (Auto) 61.4 (45.5-73.1) % Lymph % (Auto) 21.7 (18.3-44.2) % [place] % (Auto) 8.0 (2.6-8.5) % Eos % (Auto) 6.9 H (0-4.4) % Baso % (Auto) 1.8 H (0.2-1.2) % Lymph # (Auto) 1.20 (0.9-3.2) K/mm3 [place] # (Auto) 0.4 (0.1-0.6) K/mm3 Eos # (Auto) 0.4 H (0-0.3) K/mm3 Baso # (Auto) 0.1 (0.0-0.1) K/mm3 Abs Immat Gran (auto) 0.01 (0.00-0.031) K/mm3 Absolute Neuts (auto) 3.4 (1.3-6.7) K/mm3 Absolute Nucleated RBC 0.000 (0.0-0.012) K/mm3 Nucleated RBC % 0.0 (0.0-0.2) % Sodium 138 (137-145) mmol/L Potassium 4.3 (3.4-5.0) mmol/L Chloride 101 (98-107) mmol/L Carbon Dioxide 26 (22-30) mmol/L Anion Gap 11 (4-12) mmol/L BUN 19 (9-20) mg/dL Creatinine 0.91 (0.7-1.3) mg/dL Estim Creat Clear Calc 49 ml/min Estimated GFR > 60 (59 - ) Glucose 110 (65-110) mg/dL Calcium 9.9 (8.4-10.2) mg/dL Total Bilirubin 0.7 (0.2-1.3) mg/dL AST 30 (17-59) U/L ALT 9 (6-50) U/L Alkaline Phosphatase 111 (38-126) U/L Total Protein 8.0 (6.3-8.2) g/dL Albumin 4.6 (3.5-5.1) g/dL TSH 0.764 (0.465-4.680) uIU/mL Urine Color Yellow (Yellow) Urine Appearance Clear (Clear) Urine pH 5.5 (5.0-9.0) Ur Specific [place] 1.014 (1.001-1.035) Urine Protein Negative (Negative) mg/dL Urine Glucose (UA) Negative (Negative) mg/dL Urine Ketones Negative (Negative) mg/dL Ur Blood (Man) Negative (Negative) Urine Nitrate Negative (Negative) Urine Bilirubin Negative (Negative) Urine Urobilinogen 0.2 (<2.0) mg/dL Leukocyte Esterase Rfl Negative (Negative) FABY/UL Salicylates < 1.0 L (2-20) mg/dL Urine Opiates Screen Negative (Negative) Urine Methadone Screen Negative (Negative) Acetaminophen < 10 L (10-30) ug/mL Ur Barbiturates Screen Negative (Negative) Ur Phencyclidine Scrn Negative (Negative) Ur Amphetamine Screen Negative (Negative) U Benzodiazepines Scrn Negative (Negative) Urine Cocaine Screen Negative (Negative) U Cannabinoids Screen Negative (Negative) Ethyl Alcohol < 10 (<10) mg/dL Influenza A (RT-PCR) Negative (Negative) Influenza B (RT-PCR) Negative (Negative) RSV (RT-PCR) Negative (Negative) SARS-CoV-2 RNA (RT-PCR) Negative (Negative) Discharge Plan Discharge Clinical Impression: Alzheimer's dementia Qualifiers: Alzheimer's disease onset: unspecified onset Dementia severity: unspecified severity Dementia behavioral or psychological symptom: unspecified whether behavioral, psychotic, or mood disturbance or anxiety Qualified Code(s): G30.9 - Alzheimer's disease, unspecified [facility] Condition: Stable Instructions: Antibiotic Form, Help Prevent Suicide in Older Adults (ED) Additional Instructions: Please follow-up with your primary care provider and neurologist. Return to the emergency department if you develop any thoughts of harming herself or other people, or other concerning symptoms. Patient Language: French Prescriptions: No Action levetiracetam [Keppra XR] 500 mg tablet extended release 24 hr 1,000 mg PO DAILY Qty: 180 2RF Rx Instructions: at bedtime donepezil [Aricept] 5 mg tablet 5 mg PO DAILY Qty: 90 1RF Rx Instructions: should be taken in the morning atorvastatin 40 mg tablet See Rx Instructions .ROUTE .COMPLEX Qty: 90 3RF Dose Instruction: TAKE 1 TABLET BY MOUTH EVERY DAY AT BEDTIME Rx Instructions: TAKE 1 TABLET BY MOUTH EVERY DAY AT BEDTIME valacyclovir [Valtrex] 500 mg Tablet 500 mg PO DAILY Follow-up/Referrals: PHYSICIAN,BRUSH MATERIAL PREPARER [Primary Care Provider] -
[2025-02-11 16:55] LABS: Add Urine Microscopic? NO; Appearance Urine Clear (Clear); Bilirubin Urine Negative (Negative); Blood Urine Negative (Negative); Color Urine Yellow (Yellow); Glucose Urine UA Negative (Negative); Ketones Urine Negative (Negative); Leukocyte Esterase Ur Negative LEU/UL (Negative); Nitrate Urine Negative (Negative); Protein Urine Negative (Negative); Specific Grav Ur 1.014 (1.001-1.035); Urobilinogen Urine 0.2 mg/dL (<2.0); pH Urine 5.5 (5.0-9.0)
[2025-02-11 17:03] LABS: Acetaminophen < 10 ug/mL (10-30); Alanine Aminotransferase 9 U/L (6-50); Albumin Level 4.6 g/dL (3.5-5.1); Alkaline Phosphatase 111 U/L (38-126); Anion Gap 11 mmol/L (4-12); Aspartate Amino Transferase 30 U/L (17-59); Bilirubin,Total 0.7 mg/dL (0.2-1.3); Blood Urea Nitrogen 19 mg/dL (9-20); Calcium 9.9 mg/dL (8.4-10.2); Carbon Dioxide 26 mmol/L (22-30); Chloride 101 mmol/L (98-107); Estimated CRCL calculation 49 ml/min; Estimated Glomerular Filt Rate > 60; Ethanol < 10 mg/dL (<10); Glucose 110 mg/dL (65-110); Potassium 4.3 mmol/L (3.4-5.0); Salicylate < 1.0 mg/dL (2-20); Sodium 138 mmol/L (137-145)
[2025-02-11 17:13] LABS: Amphetamine Screen Urine Negative (Negative); Barbiturate Screen Urine Negative (Negative); Benzodiazepines Screen Urine Negative (Negative); Cannabinoid Screen Urine Negative (Negative); Cocaine Screen Urine Negative (Negative); Methadone Screen Urine Negative (Negative); Opiate Screen Urine Negative (Negative); Phencyclidine Screen Urine Negative (Negative)
[2025-02-11 17:30] LABS: Influenza A QL RT-PCR Negative (Negative); Influenza B QL RT-PCR Negative (Negative); RSV RNA, RT-PCR Negative (Negative); SARS-CoV-2 RNA PCR Negative (Negative)
[2025-02-11 17:32] LABS: Basophils Absolute Auto 0.1 K/mm3 (0.0-0.1); Basophils Percent Auto 1.8 % (0.2-1.2); Eosinophils Absolute Auto 0.4 K/mm3 (0-0.3); Eosinophils Percent Auto 6.9 % (0-4.4); Hematocrit 43.6 % (42.0-52.0); Hemoglobin 13.6 g/dL (14.0-18.0); Immature Granulocyte Absolute 0.01 K/mm3 (0.00-0.031); Immature Granulocyte Percent A 0.2 % (0-0.5); Lymphocytes Percent Auto 21.7 % (18.3-44.2); Mean Corpuscular HGB Conc 31.2 g/dl (32-36); Mean Corpuscular Hemoglobin 30.1 pg (26-34); Mean Corpuscular Volume 96.5 fl (80-100); Mean Platelet Volume 8.5 fl (7.4-10.4); Monocytes Absolute Auto 0.4 K/mm3 (0.1-0.6); Neutrophils Absolute Auto 3.4 K/mm3 (1.3-6.7); Neutrophils Percent Auto 61.4 % (45.5-73.1); Platelet Count Result 224 k/mm3 (150-375); Red Blood Count 4.52 M/mm3 (4.6-6.20); Red Cell Distribution Width 12.7 % (11.5-14.5); White Blood Count 5.5 K/mm3 (4.5-10.0)
[2025-02-11 17:41] LABS: Thyroid Stimulating Hormone 0.764 uIU/mL (0.465-4.680)
--- NOTE | 2025-02-11 19:01 | PC.NURSE ---
Crisis at bedside
== END 2025-02-11 20:31 ==
PROVIDERS: Emergency Provider Physician Assistant
DX: G30.9 Alzheimer's disease, unspecified (principal); F02.80 Dementia in other diseases classified elsewhere, unspecified severity, without behavioral disturbance, psychotic disturbance, mood disturbance, and anxiety; F41.8 Other specified anxiety disorders; Z85.51 Personal history of malignant neoplasm of bladder; Z87.891 Personal history of nicotine dependence; Z11.59 Encounter for screening for other viral diseases
CPT/HCPCS: 36415; 80053; 80143; 80179; 80307; 81003; 82077; 84443; 85025; 87637; 99284

== ENCOUNTER 2025-02-19 13:00 | Outpatient (CLI) | payer MEDICARE, OTHER, SELFPAY ==
--- NOTE | 2025-02-19 13:49 | ECG_ITS ---
Test Date: 2025-02-19 13:58:14 Measurements Intervals [place] Rate: 51 P: -7 CA: 141 QRS: 46 QRSD: 98 T: 65 QT: 443 QTc: 410 Interpretive Statements SINUS BRADYCARDIA BORDERLINE ST ABNORMALITY- DIFFUSE LEADS BASELINE ARTIFACT- I, II, III, AVR, AVL ,AVF BORDERLINE ECG Compared to ECG 03/15/2024 21:28:50 HEART RATE HAS DECREASED Electronically Signed On 02-19-2025 16:02:18 CDT by Vishal Rosa D.O.
[2025-02-19 14:04] LABS: Basophils Absolute Auto 0.1 K/mm3 (0.0-0.1); Basophils Percent Auto 1.5 % (0.2-1.2); Eosinophils Absolute Auto 0.4 K/mm3 (0-0.3); Eosinophils Percent Auto 7.1 % (0-4.4); Hematocrit 41.3 % (42.0-52.0); Hemoglobin 12.9 g/dL (14.0-18.0); Immature Granulocyte Absolute 0.02 K/mm3 (0.00-0.031); Immature Granulocyte Percent A 0.3 % (0-0.5); Lymphocytes Absolute Auto 1.21 K/mm3 (0.9-3.2); Lymphocytes Percent Auto 19.6 % (18.3-44.2); Mean Corpuscular HGB Conc 31.2 g/dl (32-36); Mean Corpuscular Hemoglobin 30.1 pg (26-34); Mean Corpuscular Volume 96.3 fl (80-100); Mean Platelet Volume 8.6 fl (7.4-10.4); Monocytes Absolute Auto 0.5 K/mm3 (0.1-0.6); Monocytes Percent Auto 7.9 % (2.6-8.5); Neutrophils Absolute Auto 3.9 K/mm3 (1.3-6.7); Neutrophils Percent Auto 63.6 % (45.5-73.1); Platelet Count Result 225 k/mm3 (150-375); Red Blood Count 4.29 M/mm3 (4.6-6.20); Red Cell Distribution Width 12.7 % (11.5-14.5); White Blood Count 6.2 K/mm3 (4.5-10.0)
[2025-02-19 14:11] LABS: Hemoglobin A1C 5.7 % (<5.7)
--- OUTSIDE RECORDS SUMMARY | 2025-02-19 14:12 | XMS_ITS | Continuity of Care Document ---
Author Organization [facility] Address [address] [place] [address] Phone Care Team Providers Care Author'S Agent Name Role Phone No Information Unavailable Unavailable Advance Directives Directive Yes / No Effective Date File Name No Information Encounters Encounter Description Practice Location Reason(s) For Visit Diagnoses Date Provider Providers Copied on Encounter [facility], [address], [place], [id number], [place] tel:[phone] No Location No Information 8 No Information Family History Family Member Type Diagnosis Age At Onset No Information Payers Payer name Insurance type Covered alliance party ID Authoriza tion(s) No Information Social [...]
[2025-02-19 14:13] LABS: Alanine Aminotransferase 9 U/L (6-50); Albumin Level 4.3 g/dL (3.5-5.1); Alkaline Phosphatase 95 U/L (38-126); Anion Gap 8 mmol/L (4-12); Aspartate Amino Transferase 26 U/L (17-59); Bilirubin,Total 0.5 mg/dL (0.2-1.3); Blood Urea Nitrogen 20 mg/dL (9-20); Calcium 9.5 mg/dL (8.4-10.2); Carbon Dioxide 25 mmol/L (22-30); Chloride 104 mmol/L (98-107); Cholesterol 115 mg/dL (0-200); Estimated Glomerular Filt Rate > 60; Glucose 103 mg/dL (65-110); HDL Direct 57 mg/dL; Potassium 4.6 mmol/L (3.4-5.0); Sodium 137 mmol/L (137-145); Total Protein 7.3 g/dL (6.3-8.2); Triglycerides 99 mg/dL (<150)
[2025-02-19 14:24] LABS: LDL Cholesterol Direct 31 mg/dL
== END 2025-02-19 13:01 | disposition home or self-care (01) ==
DX: R94.31 Abnormal electrocardiogram [ECG] [EKG] (principal); G45.4 Transient global amnesia; E78.5 Hyperlipidemia, unspecified; F03.911 Unspecified dementia, unspecified severity, with agitation; Z79.899 Other long term (current) drug therapy
CPT/HCPCS: 36415; 80053; 80061; 83036; 84443; 85025; 93005